=== PATIENT | male | born 2000 | race Caucasian/White ===

== ENCOUNTER 2019-01-19 00:03 | Emergency (ER) | payer SELFPAY ==
[~2019-01-19] VITALS: Ht 170.2 cm; Wt 83.9 kg
[2019-01-19] MEDS ORDERED: CLOT15CR4 TP (01:01)
--- NOTE | 2019-01-19 01:01 | ED Integumentary General ---
General Chief Complaint: Skin/Wound Problems Stated Complaint: RASH Nursing Triage Note: AMBULATORY TO ED ROOM 10 WITH C/O ITCHING AND "RASH" TO GLUTEAL CLEFT AND SCROTUM AREA. Source: patient Exam Limitations: no limitations History of Present Illness Date Seen by Provider: Jan 19, 2019 Time Seen by Provider: 00:22 Initial Comments This 18-year-old young man presents to the emergency room with complaints of skin irritation in the gluteal cleft extending down around the anus and toward the scrotum. Symptoms started 2 days ago with extreme itching. He then deve loped a rash and a whitish drainage. The skin seems raw. He has pain with walking and no longer seems to itch. He has not tried any medications. He has had no prior episodes. He denies any fever. He was out fishing earlier today. Allergies and Home Medications Home Medications Clotrimazole/Betamethasone Dip 15 Gm Cream..g., 15 GM TP BID Apply in a thin layer. Prescribed by: CHOCO JONES on 01/19/19 0101 Patient Home Medication List Home Medication List Reviewed: Yes Review of Systems Review of Systems Constitutional: no symptoms reported EENTM: no symptoms reported Respiratory: no symptoms reported Cardiovascular: no symptoms reported Gastrointestinal: no symptoms reported Genitourinary: see HPI Musculoskeletal: no symptoms reported Skin: see HPI Psychiatric/Neurological: No Symptoms Reported Endocrine: No Symptoms Reported Hematologic/Lymphatic: No Symptoms Reported Past Elmkxvv-Mtkgyp-Pwesjh Hx Past Med/Social Hx: Reviewed Nursing Past Med/Soc Hx Patient Social History Alcohol Use: Denies Use Recreational Drug Use: Yes Drug of Choice: MARIJUANA Smoking Status: Never a Smoker Recent Foreign Travel: No Contact w/Someone Who Travel: No Recent Infectious Disease Expo: No Recent Hopitalizations: No Ebola Symptoms: Denies Symptoms Listed Physical Abuse: No Sexual Abuse: No Mistreated: No Fear: No Seasonal Allergies Seasonal Allergies: No Past Medical History Surgeries: No Respiratory: No Cardiac: No Neurological: No Genitourinary: No Gastrointestinal: No Musculoskeletal: No Endocrine: No HEENT: No Cancer: No Psychosocial: No Integumentary: No Blood Disorders: No Physical Exam Vital Signs Vital Signs - First Documented 01/19/19 01/19/19 00:20 01:09 Temp 96.9 Pulse 58 Resp 18 B/P (MAP) 113/75 Pulse Ox 100 Capillary Refill : General Appearance: WD/WN, no apparent distress HEENT: normal ENT inspection Neck: normal inspection Cardiovascular: regular rate, rhythm, no edema, no murmur Respiratory: lungs clear, normal breath sounds, no respiratory distress Gastrointestinal: non tender, soft Extremities: normal inspection, no pedal edema 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 There is also loss of pigment in this distribution.) Progress/Results/Core Measures Results/Orders Vital Signs/I&O 01/19/19 01/19/19 00:20 01:09 Temp 96.9 96.9 Pulse 58 60 Resp 18 18 B/P (MAP) 113/75 Pulse Ox 100 Progress Progress Note : Progress Note Exam was suspicious for lichen sclerosis. Since the tissue was moist, Lotrisone was prescribed rather than steroid alone. Departure Impression Primary Impression: Rash Disposition: HOME, SELF-CARE Condition: Stable Departure-Patient Inst. Decision time for Depature: 00:58 Referrals: NO,LOCAL PHYSICIAN (PCP) Primary Care Physician [facility]/LASHA WONG MD Patient Instructions: Lichen Sclerosus Add. Discharge Instructions: The exact cause of your rash is uncertain but may be related to lichen sclerosis or a similar condition. Use the medication as prescribed and schedule follow-up appointment with a primary care provider or voip engineer (active directory specialist). Return to care if you have worsening symptoms. All discharge instructions reviewed with patient and/or family. Voiced understanding. Scripts Clotrimazole/Betamethasone Dip (Lotrisone Cream) 15 Gm Cream..g. 15 GM TP BID, #1 TUBE 2 Refills Apply in a thin layer. Prov: CHOCO LAZO MD 01/19/19 CHOCO LAZO MD Jan 19, 2019 01:01
== END 2019-01-19 01:11 | disposition home or self-care (01) ==
LOC: ER 00:07
DX: R21 Rash and other nonspecific skin eruption (principal); F12.10 Cannabis abuse, uncomplicated
CPT/HCPCS: 99282

== ENCOUNTER 2022-08-18 22:39 | Emergency (ER) | payer BC ==
[~2022-08-18] VITALS: Ht 172.7 cm; Wt 99.8 kg
[~2022-08-18 22:39] MED LIST: CLOT15CR4 TP
[2022-08-18] MEDS ORDERED: LACTATED RINGERS 1,000 ML IV ONE (23:30)
[2022-08-18 23:44] LABS: BASOPHILS # (AUTO) 0.1 10^3/uL (0.0-0.1); BASOPHILS % (AUTO) 0 % (0-10); EOSINOPHILS # (AUTO) 0.2 10^3/uL (0.0-0.3); EOSINOPHILS % (AUTO) 2 % (0-10); HEMATOCRIT 44 % (40-54); HEMOGLOBIN 15.5 g/dL (13.3-17.7); LYMPHOCYTES # (AUTO) 2.3 10^3/uL (1.0-4.0); LYMPHOCYTES % (AUTO) 19 % (12-44); MEAN CORPUSCULAR HEMOGLOBIN 29 pg (25-34); MEAN CORPUSCULAR HGB CONC 35 g/dL (32-36); MEAN CORPUSCULAR VOLUME 83 fL (80-99); MEAN PLATELET VOLUME 12.8 fL (9.0-12.2); MONOCYTES # (AUTO) 0.7 10^3/uL (0.0-1.0); MONOCYTES % (AUTO) 5 % (0-12); NEUTROPHILS # (AUTO) 8.9 10^3/uL (1.8-7.8); NEUTROPHILS % (AUTO) 73 % (42-75); PLATELET COUNT 192 10^3/uL (130-400); WHITE BLOOD COUNT 12.2 10^3/uL (4.3-11.0)
[2022-08-18] MEDS ORDERED: cefTRIAXone 1 GM PRE-MIX 50 ML IV ONE (23:45)
[2022-08-18] MEDS ORDERED: methylPREDNISolone 125 MG (Solu-MEDROL) VIAL IVP ONE (23:45)
[2022-08-18 23:54] LABS: ALBUMIN 4.2 GM/DL (3.2-4.5)
[2022-08-18 23:55] LABS: POTASSIUM 3.6 MMOL/L (3.6-5.0)
[2022-08-18 23:56] LABS: CALCIUM 9.3 MG/DL (8.5-10.1)
[2022-08-18 23:57] LABS: TOTAL PROTEIN 8.9 GM/DL (6.4-8.2)
[2022-08-18 23:59] LABS: BILIRUBIN,TOTAL 0.2 MG/DL (0.1-1.0)
[2022-08-19 00:01] LABS: CREATININE SERUM 0.82 MG/DL (0.60-1.30)
[2022-08-19 00:03] LABS: MAGNESIUM 2.1 MG/DL (1.6-2.4)
--- NOTE | 2022-08-19 00:05 | ED Cough/URI ---
General Chief Complaint: Cough/Cold/Flu Symptoms Stated Complaint: COUGHING UP BLOOD Nursing Triage Note: PT AMBULATORY TO ROOM. STATES HE HAS HAD A COUGH AND SORE THROAT FOR ABOUT 1 WEEK. STATES HE COUGHED UP BLOOD THE PM AT 1999. STATES HE HAS ALSO HAD INCREASING HEADACHES THIS WEEK THAT TYLENOL HAS NOT HELPED. DENIES N/V/D Source: patient History of Present Illness Date Seen by Provider: Aug 19, 2022 Time Seen by Provider: 23:05 Initial Comments PT ARRIVES VIA POV FROM HOME PT STATES HE HAS BEEN SICK X 1 WEEK WITH: -SUBJECTIVE FEVER IN THE MORNINGS -HEADACHE -COUGH AND CONGESTION -SORE THROAT TONIGHT AROUND 1999, HE COUGHED AND SPIT UP A LITTLE STREAK OF BLOOD OTHER [place] NO VOMITING OR DIARRHEA OR ABDOMINAL PAIN NO SHORTNESS OF BREATH NO CHEST PAIN PT IS ABLE TO EAT AND DRINK LIQUIDS HE HAS TAKEN TYLENOL WITH MINIMAL RELIEF NO KNOWN SICK CONTACTS, BUT WORKS AT [employer] PT IS NOT COVID OR FLU VACCINATED. HE HAS NOT SOUGHT CARE UNTIL TONIGHT ( SUNDAY NIGHT) SYMPTOMS NO DIFFERENT TONIGHT HE HAS NOT TAKEN ANYTHING TODAY FOR HIS SYMPTOMS NO CHRONIC ILLNESSES PCP: [facility] Allergies and Home Medications Allergies Coded Allergies: Penicillins (Verified Allergy, Unknown, 01/21/19) Patient Home Medication List Home Medication List Reviewed: Yes Cefdinir (Cefdinir) 300 Mg Capsule, 300 MG PO BID Prescribed by: CARLTON FIELD on 08/19/22 0012 Clotrimazole/Betamethasone Dip (Lotrisone Cream) 15 Gm Cream..g., 15 GM TP BID Prescribed by: CHOCO JONES on 01/19/19 0101 Review of Systems Review of Systems Constitutional: see HPI, fever EENTM: see HPI, nose congestion, throat pain Respiratory: see HPI, cough; No short of breath, No wheezing Cardiovascular: no symptoms reported Gastrointestinal: no symptoms reported Genitourinary: no symptoms reported Musculoskeletal: no symptoms reported Skin: no symptoms reported Psychiatric/Neurological: See HPI, Headache Hematologic/Lymphatic: No Symptoms Reported Immunological/Allergic: no symptoms reported Past Yvxmjyb-Ttssyo-Nmesyb Hx Patient Social History Tobacco Use?: No Substance use?: No Alcohol Use?: No Seasonal Allergies Seasonal Allergies: No Past Medical History Surgeries: No Respiratory: No Cardiac: No Neurological: No Genitourinary: No Gastrointestinal: No Musculoskeletal: No Endocrine: No HEENT: No Cancer: No Psychosocial: No Integumentary: No Blood Disorders: No Physical Exam Vital Signs - First Documented 08/18/22 23:00 Temp 37.0 Pulse 107 Resp 20 B/P (MAP) 132/90 (104) Pulse Ox 97 Capillary Refill : Height: 5'7.00" Weight: 185lbs. oz. 83.690359nb; 33.00 BMI Method:Stated General Appearance: WD/WN, no apparent distress, other (DOES NOT APPEAR ILL OR TO BE IN ANY DISCOMFORT OR DISTRESS) HEENT: PERRL/EOMI, TMs normal; No photophobia; pharyngeal erythema; No tonsillar exudate Neck: non-tender, full range of motion, supple, normal inspection; No lymphadenopathy (R), No lymphadenopathy (L) Respiratory: normal breath sounds, no respiratory distress, no accessory muscle use Cardiovascular: no edema, no JVD, no murmur, tachycardia (110'S) Gastrointestinal: normal bowel sounds, non tender, soft, no organomegaly Extremities: normal inspection, no pedal edema, normal capillary refill 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, no motor/sensory deficits, alert, normal mood/affect, oriented x 3 Skin: normal color (PT IS ), warm/dry; No rash Progress/Results/Core Measures Suspected Sepsis SIRS Temperature: Pulse: 107 Respiratory Rate: 20 Laboratory Tests 08/18/22 23:29: White Blood Count 12.2H Blood Pressure 132 /90 Mean: 104 Laboratory Tests 08/18/22 23:29: Creatinine 0.82, Platelet Count 192, Total Bilirubin 0.2 Results/Orders Lab Results Laboratory Tests Test 08/18/22 23:10 08/18/22 23:29 Range/Units Influenza Type A (RT-PCR) Not Detected Not Detecte Influenza Type B (RT-PCR) Not Detected Not Detecte SARS-CoV-2 RNA (RT-PCR) Not Detected Not Detecte Group A Streptococcus Screen POSITIVE H NEGATIVE White Blood Count 12.2 H 4.3-11.0 10^3/uL Red Blood Count 5.28 4.30-5.52 10^6/uL Hemoglobin 15.5 13.3-17.7 g/dL Hematocrit 44 40-54 % Mean Corpuscular Volume 83 80-99 fL Mean Corpuscular Hemoglobin 29 25-34 pg Mean Corpuscular Hemoglobin Concent 35 32-36 g/dL Red Cell Distribution Width 14.1 10.0-14.5 % Platelet Count 192 130-400 10^3/uL Mean Platelet Volume 12.8 H 9.0-12.2 fL Immature Granulocyte % (Auto) 1 % Neutrophils (%) (Auto) 73 42-75 % Lymphocytes (%) (Auto) 19 12-44 % Monocytes (%) (Auto) 5 0-12 % Eosinophils (%) (Auto) 2 0-10 % Basophils (%) (Auto) 0 0-10 % Neutrophils # (Auto) 8.9 H 1.8-7.8 10^3/uL Lymphocytes # (Auto) 2.3 1.0-4.0 10^3/uL Monocytes # (Auto) 0.7 0.0-1.0 10^3/uL Eosinophils # (Auto) 0.2 0.0-0.3 10^3/uL Basophils # (Auto) 0.1 0.0-0.1 10^3/uL Immature Granulocyte # (Auto) 0.1 0.0-0.1 10^3/uL Sodium Level 140 135-145 MMOL/L Potassium Level 3.6 3.6-5.0 MMOL/L Chloride Level 105 98-107 MMOL/L Carbon Dioxide Level 21 21-32 MMOL/L Anion Gap 14 5-14 MMOL/L Blood Urea Nitrogen 15 7-18 MG/DL Creatinine 0.82 0.60-1.30 MG/DL Estimat Glomerular Filtration Rate 127 BUN/Creatinine Ratio 18 Glucose Level 124 H 70-105 MG/DL Calcium Level 9.3 8.5-10.1 MG/DL Corrected Calcium 9.1 8.5-10.1 MG/DL Magnesium Level 2.1 1.6-2.4 MG/DL Total Bilirubin 0.2 0.1-1.0 MG/DL Aspartate Amino Transf (AST/SGOT) 66 H 5-34 U/L Alanine Aminotransferase (ALT/SGPT) 134 H 0-55 U/L Alkaline Phosphatase 107 40-136 U/L Total Protein 8.9 H 6.4-8.2 GM/DL Albumin 4.2 3.2-4.5 GM/DL Monoscreen NEGATIVE NEGATIVE My Orders Orders - EMIR,CARLTON K DO Monitor-Rhythm Ecg Trace Only (08/18/22 23:09) Rapid Strep A Screen (08/18/22 23:09) Covid 19 Inhouse Test (08/18/22 23:09) Influenza A And B By Pcr (08/18/22 23:09) Isolation Central Supply Req (08/18/22 23:09) Ekg Tracing (08/18/22 23:16) Ed Iv/Invasive Line Start (08/18/22 23:26) Cbc With Automated Diff (08/18/22:) Comprehensive Metabolic Panel (08/18/22:) Magnesium (08/18/22 23:26) Monotest (08/18/22 23:26) Ed Iv/Invasive Line Start (08/18/22 23:26) Lactated Ringers (Lr 1000 Ml Iv Solution (08/18/22 23:30) Ceftriaxone 1 Gm Pre-Mix (Rocephin 1 Gm (08/18/22 23:45) Methylprednisolone Sod Succ (Solu-Medrol (08/18/22 23:45) Medications Given in ED Current Medications Medications Dose Ordered Sig/Zachary Route Start Time Stop Time Status Last Admin Dose Admin Ceftriaxone Sodium/Dextrose 50 ml @ 100 mls/hr ONCE ONCE IV 08/18/22 23:45 08/19/22 00:14 DC 08/19/22 00:18 100 MLS/HR Lactated Ringer's 1,000 ml @ 0 mls/hr Q0M ONCE IV 08/18/22 23:30 08/18/22 23:31 DC 08/18/22 23:34 999 MLS/HR Methylprednisolone Sodium Succinate 125 mg ONCE ONCE IVP 08/18/22 23:45 08/18/22 23:50 DC 08/19/22 00:17 125 MG Vital Signs/I&O 08/18/22 08/19/22 23:00 00:35 Temp 37.0 Pulse 107 100 Resp 20 24 B/P (MAP) 132/90 (104) 132/79 Pulse Ox 97 98 Capillary Refill : Blood Pressure Mean: 104 Progress Note : Progress Note PPE WORN COVID, FLU, STREP AND MONO TESTING DONE GIVEN: -IV FLUIDS -ANTIBIOTICS -STEROIDS FEELS MUCH BETTER AT DISMISSAL VITALS STABLE NO DETERIORATION IN PT'S CONDITION DURING ER STAY NO COUGH NO DYSPNEA NO HYPOXIA NO FEVER NO GI SYMPTOMS DISCUSSED TEST RESULTS, ANTICIPATED COURSE, MEDICATIONS, SYMPTOMATIC TREATMENT, NEED FOR FOLLOW UP AND RETURN PRECAUTIONS DISCUSSED WITH PT. ECG Initial ECG Impression Date: Aug 18, 2022 Initial ECG Impression Time: 23:19 Initial ECG Rate: 106 Initial ECG Rhythm: S.Tach Initial ECG Impression: Nonspecific Changes Initial ECG Comparisson: No Previous ECG Available Comment INTERPRETED BY ME Departure Impression Primary Impression: Streptococcal pharyngitis Disposition: HOME, SELF-CARE Condition: Stable Departure-Patient Inst. Decision time for Depature: 00:10 Referrals: GAMA OCONNELL DO [facility] Patient Instructions: Strep Throat ED Add. Discharge Instructions: LOTS OF CLEAR LIQUIDS TYLENOL 1 GRAM EVERY 6 HOURS FOR PAIN OR FEVER MOTRIN 800 MG EVERY 6 HOURS FOR PAIN OR FEVER FREQUENT SALT WATER GARGLES FOLLOW UP WITH [facility] IN 3-4 DAYS IF NO BETTER. RETURN TO ER IF SYMPTOMS WORSEN All discharge instructions reviewed with patient and/or family. Voiced understanding. Scripts Cefdinir (Cefdinir) 300 Mg Capsule 300 MG PO BID, #20 CAP Prov: CARLTON FIELD DO 08/19/22 CARLTON FIELD DO Aug 19, 2022 00:05
[2022-08-19] MEDS ORDERED: CEFD300C3 PO (00:12)
[2022-08-19 00:35] VITALS: BP 132/79
== END 2022-08-19 00:34 | disposition home or self-care (01) ==
LOC: EDUNIT# 22:39 → ER 22:43
DX: J02.0 Streptococcal pharyngitis (principal); Z88.0 Allergy status to penicillin; Z20.822 Contact with and (suspected) exposure to COVID-19; Z28.310 Unvaccinated for COVID-19
CPT/HCPCS: 36415; 80053; 83735; 85025; 86308; 87430; 87636; 93005; 93041